=== PATIENT | female | born 1975 | race Caucasian/White ===

== ENCOUNTER 2017-05-11 13:29 | Emergency (ER) | payer MEDICARE ==
[~2017-05-11] VITALS: Ht 167.6 cm; Wt 90.7 kg
[~2017-05-11 13:29] MED LIST: ADVAIR DISKUS 21 DSK INH; ATIVAN1 MG PO; ATIVAN2 MG PO; CATAFLAM50 MG PO; CELEXA40 MG PO; CITALOPRAM40 MG PO; CLARITIN10 MG PO; CYMBALTA60 MG PO; ELMIRON100 MG PO; FLEXERIL5 MG PO; HYDROCODONE BIT1 T11 PO; LAXATIVE5 MG PO; LIDODERM 5% PATC1 EA T; LOMOTIL 0.025 M1 TA1 PO; LOMOTIL 0.025 M1 TAB PO; MOTRIN800 MG PO; MYLICON, MYLANT80 MG; NEURONTIN100 MG; NEURONTIN300 MG PO; NEXIUM40 MG PO; NORCO 325 MG-51 TAB PO; OYSTER SHELL PO; PERCOCET 325 MG1 TA2; PLAQUENIL200 MG PO; PREDNICOT20 MG PO; REGLAN5 MG PO; TRAMADOL50 MG PO; TRAZODONE100 MG PO; ULTRAM50 MG PO; VALIUM5 MG PO; VESICARE5 MG PO; VICODIN 5/500 505 MG PO; VICODIN 500 MG-1 TAB PO; ZANTAC150 MG PO; ZOFRAN ODT4 MG PO; ZOFRAN ODT4 MG SL; ZYRTEC10 MG PO; Zofran4 MG PO
[2017-05-11 13:35] VITALS: BP 134/92
== END 2017-05-11 13:52 | disposition home or self-care (01) ==
LOC: ED 13:29
DX: Z04.8 Encounter for examination and observation for other specified reasons (principal); R03.0 Elevated blood-pressure reading, without diagnosis of hypertension; F17.200 Nicotine dependence, unspecified, uncomplicated; G89.29 Other chronic pain; Z98.890 Other specified postprocedural states; Z98.51 Tubal ligation status; Z79.899 Other long term (current) drug therapy